=== PATIENT | female | born 1990 | race Caucasian/White ===

== ENCOUNTER 2016-07-30 09:52 | Emergency (ER) | payer OTHER ==
[~2016-07-30] VITALS: Ht 180.3 cm; Wt 57.0 kg
[~2016-07-30 09:52] MED LIST: MINO50TA PO; SUMA100T2 PO; TAB-TAB PO
[2016-07-30 10:02] VITALS: BP 126/94; PULSE 116; RESP 18; TEMP 99; O2SAT 100
[2016-07-30] MEDS ORDERED: MULTCAP13 PO (10:33)
[2016-07-30] MEDS ORDERED: IMIT100T PO (10:33)
--- NOTE | 2016-07-30 10:35 | PD ---
HPI Chief Complaint: Cold / Flu Symptoms Time Seen by Provider: 10:16 Travel History International Travel<30 days: No Contact w/Intl Traveler<30days: No Traveled to known affect area: No History of Present Illness HPI The patient was seen and examined in the presence of the nurse. She complains of a diffuse constellation of symptoms. She is having body aches and low back pain and left sided pelvic pain as well as cough and congestion. Temperature is 99. At them severity is moderate. No alleviating factors. Duration 3 days. She is actively trying to get but doesn't think she is. No abnormal bleeding, has some scant discharge but not really abnormal for her. PFSH Past Medical History Cancer: No Diabetes: No Diminished Hearing: No Genitourinary: Yes Hepatitis: No Hiatal Hernia: No Hypertension: No Medical other: Yes (MIGRAINES) Reproductive: Yes Immunizations Current: Yes Migraines: Yes Thyroid Disease: No Tetanus Vaccination: < 5 Years Influenza Vaccination: No ?: Not LMP: 07/13/16 : 0 Para: 0 Miscarriage: 0 : 0 Dilation and Curettage (D&C): Yes (x1) Past Surgical History Abdominal Surgery: Yes (lap) Oral Surgery: Yes (WISDOM TEETH EXTRACT.) Other Surgery: Yes Social History Alcohol Use: Yes (SOCIALLY) Tobacco Use: No Substance Use: No Allergies-Medications (Allergen,Severity, Reaction): Coded Allergies: No Known Allergies (Verified , 07/30/16) Reported Meds & Prescriptions Reported Meds & Active Scripts Active Reported Multi Complete (Multiple Vitamins W/ Minerals) 1 Cap Cap 1 Tab PO DAILY Imitrex (Sumatriptan Succinate) 100 Mg Tab 100 Mg PO ONCE PRN If a satisfactory response has not been obtained at 2 hours, a second dose may be administered Review of Systems General / Constitutional: Positive: Fever Eyes: No: Visual changes HENT: Positive: Congestion, No: Headaches Cardiovascular: No: Chest Pain or Discomfort Respiratory: Positive: Cough, No: Shortness of Breath Gastrointestinal: No: Abdominal Pain Genitourinary: Positive: Pelvic Pain, No: Dysuria Musculoskeletal: Positive: Myalgias, No: Pain Skin: No Rash Neurologic: No: Weakness Psychiatric: No: Depression Endocrine: No: Polydipsia Hematologic/Lymphatic: No: Easy Bruising Physical Exam Narrative GENERAL: Well-nourished, well-developed patient in no apparent distress. SKIN: Warm and dry. HEAD: Atraumatic. Normocephalic. EYES: Pupils equal and round. No scleral icterus. No injection or drainage. ENT: No nasal bleeding or discharge. Mucous membranes pink and moist. Throat clear NECK: Trachea midline. No JVD. No meningeal signs CARDIOVASCULAR: Regular rate and rhythm. No murmur appreciated. RESPIRATORY: No accessory muscle use. Clear to auscultation. Breath sounds equal bilaterally. GASTROINTESTINAL: Abdomen soft, mild left lower quadrant tenderness without rebound or guarding, nondistended. Hepatic and splenic margins not palpable. MUSCULOSKELETAL: No obvious deformities. No clubbing. No cyanosis. No edema. NEUROLOGICAL: Awake and alert. No obvious cranial nerve deficits. Motor grossly within normal limits. Normal speech. PSYCHIATRIC: Appropriate mood and affect; insight and judgment normal. Pelvic: Data Data Last Documented VS Vital Signs Date Time Temp Pulse Resp B/P Pulse Ox O2 Delivery O2 Flow Rate FiO2 07/30/16 11:30 109 16 111/76 97 Room Air 07/30/16 10:02 99.0 Orders Urinalysis - C+S If Indicated (07/30/16 10:29) Ed Urine Pregnancytest Poc (07/30/16 10:29) Influenzae A/B Antigen (07/30/16 10:29) Urine Culture (07/30/16 10:25) Ketorolac Inj (Toradol Inj) (07/30/16 11:30) Acetamin-Hydrocod 325-5 Mg ([place] 5-325 (07/30/16 11:30) Labs Laboratory Tests Test 07/30/16 10:25 Urine Collection Type CLEAN CATCH Urine Color ORANGE Urine Turbidity SLIGHT Urine pH 5.0 Urine Specific [place] 1.016 Urine Protein 30 mg/dL Urine Glucose (UA) 100 mg/dL Urine Ketones NEG mg/dL Urine Occult Blood NEG Urine Nitrite POS Urine Bilirubin NEG Urine Leukocyte Esterase NEG Urine RBC 0-3 /hpf Urine WBC 3-5 /hpf Urine Squamous Epithelial > 8 /hpf Cells Urine Transitional Epithelial 0-5 /hpf Cells Urine Bacteria MOD /hpf Microscopic Urinalysis Comment CULTURE INDICATED Urine Collection Time 10:25 [facility] Medical Decision Making Medical Screen Exam Complete: Yes Emergency Medical Condition: Yes Medical Record Reviewed: Yes Differential Diagnosis Flu syndrome, pyelonephritis, PID Narrative Course I have reviewed the patient's electronic medical record. Patient was last seen at 2012 for headache Urinalysis will be cultured but is not overly suspicious for infection given there is more epithelial cells than white cells Urine is negative Influenza swab is negative I think the patient has a viral syndrome. It makes most sense given her diffuse constellation of infective type symptoms I don't see any antibiotics indication I expect gradual resolution Supportive care is discussed Diagnosis Primary Impression: Acute viral syndrome Additional Instructions: The patient was advised to follow up with their physician and return if they worsen. Med/Other Pt SpecificInfo: Other Disposition: 01 DISCHARGE HOME Condition: Stable Ryan Prado MD Jul 30, 2016 10:35
[2016-07-30 10:58] LABS: BLOOD, URINE NEG (NEG); GLUCOSE,URINE 100 mg/dL (NEG); KETONE, URINE NEG (NEG)
[2016-07-30 11:03] LABS: NITRITE,URINE POS (NEG)
[2016-07-30 11:12] LABS: METHOD OF COLLECTION CLEAN CATCH; URINE COLOR ORANGE (YELLW/STRAW)
[2016-07-30 11:13] LABS: BACTERIA, URINE MOD /hpf; COMMENT (UR) CULTURE INDICATED; CULTURE IF INDICATED CULTURE INDICATED; RBC, URINE 0-3 /hpf (0-3); SQUAMOUS EPITHELIAL CELL URINE > 8 /hpf (0-5); TRANSITIONAL EPI CELLS, URINE 0-5 /hpf
[2016-07-30 11:30] VITALS: BP 111/76; PULSE 109; RESP 16; O2SAT 97
[2016-07-30] MEDS ORDERED: KETOROLAC TROMETHAMINE 60 MG/2 ML (IM) VIAL IM ONE (11:30)
[2016-07-30] MEDS ORDERED: ACETAMINOPHEN/HYDROcodone 325 MG/5 MG TAB PO ONE (11:30)
[2016-07-30 12:19] VITALS: RESP 16
== END 2016-07-30 12:21 | disposition home or self-care (01) ==
LOC: PHED 09:52
DX: B34.9 Viral infection, unspecified (principal)
CPT/HCPCS: 81001; 84703; 87086; 87804; 96372; 99283; J1885

== ENCOUNTER → 2017-09-26 | Outpatient (CLI) | payer OTHER ==
[~2017-09-26] MED LIST changes: +IMIT100T PO; +LACTCAP8 PO; -MINO50TA PO; +MULTCAP13 PO; +PREN29TA PO; -SUMA100T2 PO; -TAB-TAB PO
[2017-09-26 13:01] LABS: BACTERIA, URINE FEW /hpf; BILIRUBIN, URINE NEG (NEG); BLOOD, URINE NEG (NEG); GLUCOSE,URINE NEG (NEG); KETONE, URINE NEG (NEG); NITRITE,URINE NEG (NEG); PH, URINE 7.5 (5.0-8.5); SQUAMOUS EPITHELIAL CELL URINE 2 /hpf (0-5); URINE COLOR LIGHT-YELLOW (YELLW/STRAW); URINE LEUKOCYTE ESTERASE NEG (NEG)
[2017-09-26 13:03] LABS: HEMOGLOBIN 14.1 GM/DL (11.6-15.3); MEAN CELL VOLUME 88.5 FL (80.0-100.0); MEAN CORPUSCULAR HEMOGLOBIN 31.2 PG (27.0-34.0); MEAN CORPUSCULAR HGB CONC 35.2 % (32.0-36.0); MEAN PLATELET VOLUME 7.8 FL (7.0-11.0); PLATELET COUNT 293 TH/MM3 (150-450); RED BLOOD COUNT 4.51 MIL/MM3 (4.00-5.30); RED CELL DISTRIBUTION WIDTH 12.2 % (11.6-17.2); WHITE BLOOD COUNT 8.9 TH/MM3 (4.0-11.0)
[2017-09-26 13:30] LABS: BICARBONATE 28.9 MEQ/L (21.0-32.0); BLOOD UREA NITROGEN 7 MG/DL (7-18); CALCIUM 8.4 MG/DL (8.5-10.1); CHLORIDE 108 MEQ/L (98-107); CREATININE 0.73 MG/DL (0.50-1.00); GLOMERULAR FILTRATION RATE 96 ML/MIN (>89); GLUCOSE,FASTING 77 MG/DL (74-99); SODIUM (NA) 141 MEQ/L (136-145)
== END ==
LOC: CPRE 12:32
PROVIDERS: ATTEND Obstetrics & Gynecology
DX: Z01.812 Encounter for preprocedural laboratory examination (principal); R82.99 Other abnormal findings in urine
CPT/HCPCS: 36415; 80048; 81001; 84443; 84703; 85027; 87086

== ENCOUNTER → 2017-10-02 | Day surgery (SDC) | payer OTHER ==
[~2017-10-02] VITALS: Ht 180.3 cm; Wt 55.9 kg
[~2017-10-02] MED LIST changes: +*morphine SULFATE 8 MG/ML PERIprocedure ONLY ONE; +ACETAMINOPHEN 1000 MG/100 ML 100 ML IV ONE; +APREPITANT 40 MG CAP PO ONE; +CHLORHEXIDINE GLUCONATE 2 % 1 PACK (2 CLOTHS) TOPICAL PRN; +DEXAMETHASONE SOD PHOS 4 MG/ML VIAL IV ONE; +DO NOT ADM ANY ANTICOAGULANT DRUGS PRN; +FAMOTIDINE 20 MG/2 ML VIAL ONE; +GLYCOPYRROLATE 1 MG/5 ML SYRINGE IV PUSH ONE; +LACTATED RINGER'S 1000 ML INJ 1,000 ML IV ONE; +LACTATED RINGER'S 1000 ML IV PRN; +LIDOCAINE HCL 1% PF 5 ML SYRINGE OTHER ONE; +METHYLENE BLUE 10 MG/ML VIAL OTHER ONE; +METOPROLOL TARTRATE 25 MG TAB PO PRN; +MIDAZOLAM HCL 2 MG/2 ML VIAL ONE; -MULTCAP13 PO; +NEOSTIGMINE 5 MG/5 ML SYRINGE IV PUSH ONE; +ONDANSETRON HCL 4 MG/2 ML VIAL IV PUSH ONE; +POVIDONE IODINE 5% (ANTISEPSIS KIT) 4 APPLICATIONS EACH NARE PRN; +PROPOFOL 200 MG/20 ML AMP IV ONE; +ROCURONIUM INJ 50 MG/5 ML SYRINGE IV PUSH ONE; +SODIUM CHLORID 0.9% 500 ML IV PRN; +SODIUM CHLORIDE 0.9% 20 ML VIAL ONE; +oxyCODONE/ACETAMINOPHEN 5 MG/325 MG TAB PO PRN
--- NOTE | 2017-10-02 17:39 | MP ---
cc: Sarah Oviedo MD, R John MD DATE OF OPERATION: 10/02/2017 POSTOPERATIVE DIAGNOSES: 1. Severe dysmenorrhea. 2. Deep dyspareunia. 3. Menorrhagia. 4. Endometriosis. 5. Infertility. POSTOPERATIVE DIAGNOSES. 1. Severe dysmenorrhea. 2. Deep dyspareunia. 3. Menorrhagia. 4. Endometriosis. 5. Infertility. PROCEDURE PERFORMED: Examination under anesthesia, dilation and curettage of the uterus, hysteroscopic exam, laparoscopic exam, coagulation of endometriosis. ANESTHESIA: General endotracheal intubation. SURGEON: Sarah Oviedo MD FINDINGS: Examination under anesthesia. The vagina was clean. The cervix was somewhat stenosed and small but opened easily. The uterus normal size, shape and consistency and the adnexa was without masses. Hysteroscopic exam revealed a uterus that sounded to 8 cm. There was quite a bit of fluff. No polyps or submucous myomas were seen. The D and C revealed a normal amount of tissue. There was a very gentle curettage. The laparoscopic exam revealed a normal, but slightly enlarged uterus. Fallopian tubes were normal in length and caliber. The ovaries were normal. There was some endometriosis in the right ovarian fossa. The upper abdomen and liver were normal. There was scattered endometriotic implants in the anterior cul-de-sac, posterior cul-de-sac, along the ureter and vessels on the pelvic sidewalls. I coagulated probably 70% of the implants. The other 30% were over vital organs COMPLICATIONS: None. COUNTS: Correct. ESTIMATED BLOOD LOSS: Minimal. DISPOSITION: The patient tolerated the procedure well and went to the recovery room in good condition. PROCEDURE IN DETAIL: The patient was taken to the operating room, identified by name band and verbally, given a general anesthetic, carefully placed in dorsal lithotomy position, prepped and draped in the usual sterile fashion for laparoscopic vaginal surgery. Timeout was taken and a Cagle catheter was inserted. Examination under anesthesia was carried out with the above findings. Weighted speculum was placed in the vagina. The anterior lip of the cervix was grasped with a single-tooth tenaculum. Cervix was somewhat stenotic and we had to use a small probe to open that up and, once we began, the dilation went very easily. The hysteroscope was then inserted and the entire endometrial cavity was carefully inspected with the above findings. The hysteroscope was removed and a gentle curettage with a #1 sharp curet was carried out. Hulka clamp was placed and attention was turned to the umbilical area. A small subumbilical incision was made and, with a 5 mm trocar, we inserted that into the abdominal cavity and a pneumoperitoneum was created with 3 liters of CO2. At this point, we noted multiple endometriosis implants. Inferolateral to the umbilicus on the left, we put another second port with a 5 mm trocar under direct vision without difficulty to observe the ovarian fossa and we put a Kleppinger through that to burn the endometriotic implants. We burned probably 70% of them. They were scattered throughout the pelvis on both pelvic sidewalls, both anterior and posterior cul-de-sac and some behind the right ovary. The left ovary was then noted to be hanging quite low, but I did not see a way to fix this and this may be part of her region of deep dyspareunia. At this point, the Hulka clamp was removed. A HUMI cannula was placed and we shot methylene blue into the uterine cavity with good results. The left tube was a little bit clogged, but once we put a little pressure on it it opened up nicely and the methylene blue dye flowed freely through the left tube. The right tube did not have any dye come through. However, it did look normal in length and caliber and it might have been due to a sphincter problem rather than the patency of the tube. At this point, we irrigated the pelvis of a large amount of fluids and cleaned that out and removed the laparoscope under direct vision and let the air out through the second puncture. These incisions were repaired with 4-0 Monocryl in a subcuticular manner. We removed the HUMI cannula from the vagina, washed the vagina out as best we could and took her to the recovery room in good condition. R. MD NURYS [place]/ , 05:06 PM , 05:37 PM
[2017-10-02 18:40] VITALS: BP 113/78; PULSE 79; RESP 16; TEMP 98.2; O2SAT 100
== END | disposition home or self-care (01) ==
LOC: HSDC 11:18
PROVIDERS: ATTEND Obstetrics & Gynecology
DX: N94.6 Dysmenorrhea, unspecified (principal); N94.12 Deep dyspareunia; N92.0 Excessive and frequent menstruation with regular cycle; N97.9 Female infertility, unspecified; N80.1 Endometriosis of ovary; N80.3 Endometriosis of pelvic peritoneum; Z01.818 Encounter for other preprocedural examination
CPT/HCPCS: 00840; 58120; 58662; 88305; J0131; J1100; J2250; J2270; J2405; J2710; J3010; J7120